=== PATIENT | male | born 1965 | race Caucasian/White ===

== ENCOUNTER 2021-03-22 22:16 | Emergency (ER) | payer SELFPAY ==
[~2021-03-22] VITALS: Ht 172.7 cm; Wt 107.3 kg
[2021-03-23] MEDS ORDERED: NS 1,000 ML IV ONE (00:05)
--- NOTE | 2021-03-23 01:08 | REPVR ---
PROCEDURE INFORMATION: Exam: XR Chest Exam date and time: 03/22/2021 11:46 PM Age: 55 years old Clinical indication: Other: Syncope; Additional info: Syncope/near-syncope TECHNIQUE: Imaging protocol: XR of the chest. Views: 1 view. COMPARISON: No relevant prior studies available. FINDINGS: Lungs: No focal infiltrates. Pleural spaces: Unremarkable. No pleural effusion. No pneumothorax. Heart/Mediastinum: Borderline cardiomegaly in view of AP and lordotic projection. Bones/joints: Unremarkable. IMPRESSION: 1. Borderline cardiomegaly. 2. Otherwise negative lordotic chest. Electronically signed by: Jase Quintero On 03/23/2021 01:07:53 AM
[2021-03-23 01:42] LABS: BASO % 0.3 % (0.0-1.0); EOS # 0.1 10^3/uL (0.0-0.5); EOS % 0.7 % (0.0-3.0); HEMATOCRIT 44.9 % (42.0-52.0); HEMOGLOBIN 15.4 g/dl (13.5-17.5); LYMPH # 1.1 10^3/uL (1.5-5.0); LYMPH % 9.8 % (24.0-44.0); MEAN CORPUSCULAR HEMOGLOBIN 30.7 pg (27.0-33.0); MEAN CORPUSCULAR HGB CONC 34.3 g/dl (32.0-36.5); MEAN CORPUSCULAR VOLUME 89.4 fl (80.0-96.0); MONO # 0.9 10^3/uL (0.0-0.8); MONO % 7.5 % (2.0-8.0); NEUTROPHILS # 9.3 10^3/uL (1.5-8.5); NEUTROPHILS % 81.1 % (36.0-66.0); PLATELET COUNT, AUTOMATED 249 10^3/uL (150-450); RED BLOOD COUNT 5.02 10^6/uL (4.30-6.10); WHITE BLOOD COUNT 11.5 10^3/uL (4.0-10.0)
[2021-03-23 02:30] LABS: BLOOD UREA NITROGEN 14 MG/DL (7-18); CALCIUM LEVEL 8.7 MG/DL (8.5-10.1); CARBON DIOXIDE LEVEL 25 MEQ/L (21-32); CHLORIDE LEVEL 106 MEQ/L (98-107); CK-MB VALUE MASS < 1.0 NG/ML (<3.6); CPK CREATINE PHOSPHOKINASE 139 U/L (39-308); CREATININE FOR GFR 1.06 MG/DL (0.70-1.30); ETHYL ALCOHOL (ETHANOL) 0.004 % (0.000-0.010); GLOMERULAR FILTRATION RATE > 60.0 (>56); GLUCOSE, FASTING 110 MG/DL (70-100); MB/CK RELATIVE INDEX 0.72 (< OR =4); SODIUM LEVEL 140 MEQ/L (136-145); THYROID STIMULATING HORMONE 0.941 uIU/ML (0.358-3.740); TROPONIN I < 0.02 NG/ML (< 0.10)
[2021-03-23 02:57] LABS: CK-MB VALUE MASS < 1.0 NG/ML (<3.6); CPK CREATINE PHOSPHOKINASE 144 U/L (39-308); MB/CK RELATIVE INDEX 0.69 (< OR =4); TROPONIN I < 0.02 NG/ML (< 0.10)
[2021-03-23 03:30] VITALS: BP 125/65
--- NOTE | 2021-03-23 20:47 | ECGEPIP ---
[facility] - ED Test Date: 2021-03-23 Pat Name: OTILIO GONZALEZ Department: Room: - Gender: Male Policy Analyst: clayton : 1965 Requested By: GUANAKITO Bonilla Order Number: [id number] Reading MD: Conner Allan Measurements Intervals [place] Rate: 73 P: 37 RI: 236 QRS: 25 QRSD: 96 T: 47 QT: 384 QTc: 423 Interpretive Statements Sinus rhythm with 1st degree AV block NO PRIORS FOR COMPARISON Electronically Signed on 03-23-2021 20:47:05 EDT by Conner Allan
== END 2021-03-23 03:46 | disposition home or self-care (01) ==
LOC: M ED 22:16
DX: R55 Syncope and collapse (principal); I44.0 Atrioventricular block, first degree; I25.10 Atherosclerotic heart disease of native coronary artery without angina pectoris; I10 Essential (primary) hypertension; Z95.5 Presence of coronary angioplasty implant and graft